=== PATIENT | female | born 1985 | race Hispanic/Latino ===

== ENCOUNTER 2022-02-01 09:26 | Outpatient (CLI) | payer OTHER | END 2022-02-01 09:27 | disposition home or self-care (01) | LOC: CSHLAB 09:26 | PROVIDERS: ATTEND Advanced Practice Midwife | DX: Z20.822 Contact with and (suspected) exposure to COVID-19 (principal) | CPT/HCPCS: 87811 ==

== ENCOUNTER 2022-02-04 10:03 | Inpatient (IN) | payer MEDICAID, OTHER ==
[2022-02-04] MEDS ORDERED: PHENYLEPHRINE-NS 100 MCG/ML 10 ML SYRINGE ONE (10:36)
[2022-02-04] MEDS ORDERED: Morphine PF 10 MG/10 ML VIAL ONE (10:36)
[2022-02-04] MEDS ORDERED: Oxytocin 10 UNITS/ML VIAL ONE (10:36)
[2022-02-04] MEDS ORDERED: Promethazine HCl 25 MG/ML VIAL IM PRN ×2 (11:08→13:45)
[2022-02-04] MEDS ORDERED: Famotidine/PF 20 mg/2ml Vial SLOW IVP PRN (11:08)
[2022-02-04] MEDS ORDERED: Bicitra 30 ML UDCUP PO PRN (11:08)
[2022-02-04] MEDS ORDERED: hydrALAZINE 20 MG/ML VIAL SLOW IVP PRN ×2 (11:08→14:37)
[2022-02-04] MEDS ORDERED: Ondansetron PF 4 MG/2 ML Vial IVP PRN ×3 (11:08→14:37)
[2022-02-04] MEDS ORDERED: Acetaminophen 500 MG TAB PO PRN (11:08)
[2022-02-04] MEDS ORDERED: Lactated Ringer's 1,000 ML IV SCH (11:15)
[2022-02-04] MEDS ORDERED: CEFAZOLIN 2 GM in Sodium Chloride 0.9% 100 ML IVPB SCH (11:15)
[2022-02-04] MEDS ORDERED: Fentanyl 100 MCG/2 ML VIAL ONE (12:05)
[2022-02-04 12:06] VITALS: BMI 35.0
[2022-02-04 12:06] LABS: Hemoglobin 13.1 g/dL (12.0-15.5); Mean Corpuscular HGB CONC 34.7 g/dL (32.0-36.0); Mean Corpuscular Hemoglobin 31.1 pg (27.0-33.0); Mean Corpuscular Volume 89.5 fl (81.6-98.3); Mean Platelet Volume 10.6 fl (7.4-10.4); Platelet Count 277 10x3/uL (150-450); RBC Distribution Width 15.6 % (11.5-14.5); Red Blood Cell (RBC) Count 4.21 10x6/uL (3.90-5.03); White Blood Cell (WBC) Count 8.5 10x3/uL (3.5-10.5)
[2022-02-04 12:27] LABS: SARS-CoV-2 NAA Rapid Test Not Detected (NotDetected)
[2022-02-04] MEDS ORDERED: Ondansetron PF 4 MG/2 ML Vial ONE (12:45)
[2022-02-04] MEDS ORDERED: Dexamethasone 4 mg/ml Vial ONE (12:45)
[2022-02-04 12:48] LABS: HBSAg Index 0.21 S/CO (0-0.99); Hep B Surf Ag Non-Reactive S/CO (NonReactive)
[2022-02-04 12:49] LABS: Syphilis Antibody Nonreactive (Nonreactive); Syphilis Antibody Index 0.07 S/CO (<1.00 Non-Reactive)
[2022-02-04] MEDS ORDERED: Ketorolac Tromethamine 30 MG/ML VIAL ONE (12:54)
[2022-02-04] MEDS ORDERED: diphenhydrAMINE 50 MG/ML VIAL ONE (13:02)
[2022-02-04] MEDS ORDERED: HYDROmorphone 2 MG/ML VIAL SLOW IVP PRN (13:45)
[2022-02-04] MEDS ORDERED: Promethazine HCl 25 MG SUPP PR PRN (13:45)
[2022-02-04] MEDS ORDERED: Fentanyl 100 MCG/2 ML VIAL SLOW IVP PRN (13:45)
[2022-02-04] MEDS ORDERED: Moisturizing Cream (Eucerin) 113 GM JAR TOP PRN (13:45)
[2022-02-04] MEDS ORDERED: diphenhydrAMINE 50 MG/ML VIAL IVP PRN (13:45)
[2022-02-04] MEDS ORDERED: Naloxone HCl 0.4 mg/ml Vial IV PRN (13:45)
[2022-02-04] MEDS ORDERED: Communication Order-Pharmacy FS SCH (13:45)
[2022-02-04] MEDS ORDERED: Ondansetron HCl/PF 4 MG/2 ML Vial IVP PRN (13:45)
[2022-02-04] MEDS ORDERED: Ketorolac Tromethamine 30 MG/ML VIAL IVP PRN (13:45)
[2022-02-04] MEDS ORDERED: Naloxone HCl 0.4 mg/ml Vial IVP PRN ×2 (13:45)
[2022-02-04] MEDS ORDERED: Ketorolac Tromethamine 30 MG/ML VIAL IVP SCH (13:45)
[2022-02-04] MEDS ORDERED: Meperidine HCl/PF 25 MG/ML VIAL SLOW IVP PRN (13:45)
[2022-02-04] MEDS ORDERED: Simethicone Chewable 80 MG TAB PO PRN (14:37)
[2022-02-04] MEDS ORDERED: NS w/ Oxytocin 30 units 500 ML IV SCH (14:37)
[2022-02-04] MEDS ORDERED: Boostrix 0.5 ML (Tdap) VIAL (>/=7 yrs of age) IM ONE (14:37)
[2022-02-04] MEDS ORDERED: Misoprostol 200 MCG TAB PR PRN (14:37)
[2022-02-04] MEDS ORDERED: Acetaminophen 325 MG TAB PO PRN ×2 (14:37→17:47)
[2022-02-04] MEDS ORDERED: diphenhydrAMINE 25 MG CAP PO PRN (14:37)
[2022-02-04] MEDS: Docusate 100 MG CAP PO SCH (22:19)
[2022-02-04] MEDS: Ferrous Sulfate 325 MG TAB PO SCH (22:20)
[2022-02-05] MEDS: HYDROcodone/Acetaminophen 5/325 mg Tablet PO PRN ×2 (04:15→14:02)
[2022-02-05 05:13] LABS: Hemoglobin 11.7 g/dL (12.0-15.5); Mean Corpuscular HGB CONC 34.6 g/dL (32.0-36.0); Mean Corpuscular Volume 89.7 fl (81.6-98.3); Mean Platelet Volume 10.6 fl (7.4-10.4); Platelet Count 250 10x3/uL (150-450); RBC Distribution Width 15.5 % (11.5-14.5); Red Blood Cell (RBC) Count 3.77 10x6/uL (3.90-5.03); White Blood Cell (WBC) Count 12.7 10x3/uL (3.5-10.5)
[2022-02-05] MEDS: Docusate 100 MG CAP PO SCH ×2 (08:49→21:53)
[2022-02-05] MEDS: Prenatal Vitamin 1 TAB PO SCH (08:49)
[2022-02-05] MEDS: Ferrous Sulfate 325 MG TAB PO SCH ×2 (08:54→19:40)
[2022-02-05] MEDS: Ibuprofen 800 MG TAB PO SCH ×2 (14:02→21:53)
[2022-02-06] MEDS: HYDROcodone/Acetaminophen 5/325 mg Tablet PO PRN ×2 (00:04→12:01)
[2022-02-06 04:31] VITALS: TEMP 97.8
[2022-02-06] MEDS: Ibuprofen 800 MG TAB PO SCH (06:23)
[2022-02-06 08:24] VITALS: BP 96/59
[2022-02-06] MEDS: Docusate 100 MG CAP PO SCH (08:49)
[2022-02-06] MEDS: Prenatal Vitamin 1 TAB PO SCH (08:49)
[2022-02-06] MEDS: Ferrous Sulfate 325 MG TAB PO SCH (09:19)
== END 2022-02-06 14:45 | disposition home or self-care (01) | DRG 787 ==
LOC: CSHLD 10:03 → CSHPP 16:24
PROVIDERS: ADMIT Family Medicine; ATTEND Family Medicine
PROC: 10D00Z1 Extraction of Products of Conception, Low, Open Approach (ICD-10-PCS; principal; 2022-02-04)
DX: O34.211 Maternal care for low transverse scar from previous cesarean delivery (principal); E71.311 Medium chain acyl CoA dehydrogenase deficiency; Z37.0 Single live birth; Z3A.39 39 weeks gestation of pregnancy; O99.214 Obesity complicating childbirth; Z86.2 Personal history of diseases of the blood and blood-forming organs and certain disorders involving the immune mechanism; Z22.7 Latent tuberculosis; Z20.822 Contact with and (suspected) exposure to COVID-19; E66.9 Obesity, unspecified; D64.9 Anemia, unspecified; O99.02 Anemia complicating childbirth; O99.284 Endocrine, nutritional and metabolic diseases complicating childbirth; K66.0 Peritoneal adhesions (postprocedural) (postinfection); O99.62 Diseases of the digestive system complicating childbirth
CPT/HCPCS: 36415; 51702; 71045; 85027; 86780; 86850; 86900; 86901; 87340; J0690; J1100; J1200; J1885; J2274; J2405; J2590; J3010; J3490; U0002

== ENCOUNTER 2024-01-28 15:26 | Emergency (ER) | payer MEDICAID, OTHER, SELFPAY ==
[2024-01-28] MEDS ORDERED: Acetaminophen 500 MG TAB ONE (17:43)
[2024-01-28] MEDS ORDERED: Metoclopramide HCl 10 MG (2 mL) VIAL ONE (17:43)
[2024-01-28 17:55] LABS: #Basophils 0.05 10x3/uL (0.0-0.2); #Eosinphils 0.45 10x3/uL (0.0-0.5); #Monocytes 0.42 10x3/uL (0.0-1.1); #Neutrophils 7.84 10x3/uL (1.5-8.4); %Basophils 0.5 % (0.0-2.0); %Eosinophils 4.2 % (0.0-6.0); %Lymphocytes 18.2 % (18.0-47.0); %Monocytes 3.9 % (0.0-10.0); %Neutrophils 72.7 % (40.0-75.0); Hematocrit 38.6 % (34.9-44.5); Mean Corpuscular HGB CONC 33.7 g/dL (32.0-36.0); Mean Corpuscular Hemoglobin 30.2 pg (27.0-33.0); Mean Corpuscular Volume 89.6 fL (81.6-98.3); Mean Platelet Volume 9.5 fL (7.4-10.4); Platelet Count 322 10x3/uL (150-450); RBC Distribution Width 14.4 % (11.5-14.5); Red Blood Cell (RBC) Count 4.31 10x6/uL (3.90-5.03); White Blood Cell (WBC) Count 10.8 10x3/uL (3.5-10.5)
[2024-01-28 18:08] LABS: ALT (SGPT) 8 U/L (8-55); AST (SGOT) 15 U/L (5-34); Albumin 3.5 g/dL (3.5-5.0); Alkaline Phosphatase 75 U/L (40-110); Anion Gap 13 mmol/L (10-20); BUN (Urea Nitrogen) 9 mg/dL (7.0-18.7); Bilirubin, Total 0.3 mg/dL (0.2-1.2); Calc. Creatinine Clearance 0 mL/min (70-130); Calcium 9.7 mg/dL (7.8-10.44); Carbon Dioxide 22 mmol/L (22-29); Chloride 105 mmol/L (98-107); Estimated GFR 118; Globulin 4.3 g/dL (2.4-3.5); Glucose 88 mg/dL (70-105); Lipase 44 U/L (8-78); Magnesium 2.2 mg/dL (1.6-2.6); Potassium 3.8 mmol/L (3.5-5.1); Protein, Total 7.8 g/dL (6.0-8.3); Sodium 136 mmol/L (136-145)
[2024-01-28 18:32] LABS: SARS-CoV-2 E Target Negative; SARS-CoV-2 N2 Target Negative; SARS-CoV-2 NAA Rapid Test Not Detected (NotDetected); SARS-CoV-2 RdRP gene Negative
[2024-01-28 18:53] LABS: Bilirubin Neg (Negative); Blood, Urine Negative (Negative); Glucose, Urine (Dipstick) Normal (Negative); Ketone, Urine 50 mg/dL (Negative); Leukocyte 25 (Negative); Nitrite Positive (Negative); Protein, Urine (Dipstick) Negative (Neg-Trace); Urobilinogen Normal mg/dL (Less than 2)
[2024-01-28 19:03] LABS: Clarity Hazy (Clear)
[2024-01-28 19:10] LABS: CAUTI Indications for Culture Pregnancy; RBC/HPF 0-3 HPF (0-3)
[2024-01-28 19:11] LABS: Bacteria/HPF 3+ HPF (None Seen); Mucous/LPF 2+ LPF (<2+); Transitional Epithelial 0-3 HPF (None Seen)
[2024-01-28 19:14] LABS: Urine Culture Reflex Yes Yes
== END 2024-01-28 19:26 | disposition home or self-care (01) ==
LOC: CSHERS 15:26
DX: O23.41 Unspecified infection of urinary tract in pregnancy, first trimester (principal); N39.0 Urinary tract infection, site not specified; O99.511 Diseases of the respiratory system complicating pregnancy, first trimester; J06.9 Acute upper respiratory infection, unspecified; Z3A.12 12 weeks gestation of pregnancy
CPT/HCPCS: 80053; 81001; 83690; 83735; 85025; 87077; 87086; 87186; 96365; J2765; U0002

== ENCOUNTER 2024-02-11 14:14 | Emergency (ER) | payer OTHER, SELFPAY ==
[2024-02-11 14:47] LABS: Bilirubin Neg (Negative); Blood, Urine 10 (Negative); Clarity Cloudy (Clear); Glucose, Urine (Dipstick) Normal (Negative); Ketone, Urine Negative (Negative); Leukocyte 100 (Negative); Nitrite Negative (Negative); Protein, Urine (Dipstick) 30 mg/dl (Neg-Trace); Specific Gravity, Urine 1.025 (1.005-1.030); Urobilinogen Normal mg/dL (Less than 2)
[2024-02-11 15:22] LABS: #Basophils 0.05 10x3/uL (0.0-0.2); #Eosinphils 0.27 10x3/uL (0.0-0.5); #Neutrophils 7.07 10x3/uL (1.5-8.4); %Basophils 0.5 % (0.0-2.0); %Eosinophils 2.6 % (0.0-6.0); %Lymphocytes 22.5 % (18.0-47.0); %Monocytes 4.9 % (0.0-10.0); %Neutrophils 68.7 % (40.0-75.0); Hematocrit 35.4 % (34.9-44.5); Mean Corpuscular HGB CONC 33.9 g/dL (32.0-36.0); Mean Corpuscular Hemoglobin 30.3 pg (27.0-33.0); Mean Corpuscular Volume 89.4 fL (81.6-98.3); Mean Platelet Volume 9.7 fL (7.4-10.4); Platelet Count 352 10x3/uL (150-450); RBC Distribution Width 14.6 % (11.5-14.5); Red Blood Cell (RBC) Count 3.96 10x6/uL (3.90-5.03); White Blood Cell (WBC) Count 10.3 10x3/uL (3.5-10.5)
[2024-02-11 15:35] LABS: ALT (SGPT) Less than 7 U/L (8-55); AST (SGOT) 16 U/L (5-34); Albumin 3.1 g/dL (3.5-5.0); Alkaline Phosphatase 64 U/L (40-110); Anion Gap 13 mmol/L (10-20); BUN (Urea Nitrogen) 10 mg/dL (7.0-18.7); Bilirubin, Total 0.2 mg/dL (0.2-1.2); Calc. Creatinine Clearance 0 mL/min (70-130); Calcium 9.4 mg/dL (7.8-10.44); Carbon Dioxide 21 mmol/L (22-29); Chloride 105 mmol/L (98-107); Estimated GFR 121; Globulin 3.9 g/dL (2.4-3.5); Glucose 76 mg/dL (70-105); Potassium 3.5 mmol/L (3.5-5.1); Sodium 135 mmol/L (136-145)
[2024-02-11 15:51] LABS: RBC/HPF 0-3 HPF (0-3)
[2024-02-11 15:52] LABS: Bacteria/HPF 2+ HPF (None Seen); CAUTI Indications for Culture Pregnancy
[2024-02-11 15:53] LABS: Mucous/LPF 2+ LPF (<2+)
[2024-02-11 15:55] LABS: Urine Culture Reflex Yes Yes
== END 2024-02-11 18:21 | disposition home or self-care (01) ==
LOC: CSHERS 14:14
DX: O23.41 Unspecified infection of urinary tract in pregnancy, first trimester (principal); N39.0 Urinary tract infection, site not specified; Z3A.13 13 weeks gestation of pregnancy
CPT/HCPCS: 36415; 80053; 81001; 85025; 87077; 87086; 87186; 99283